=== PATIENT | female | born 1990 | race Caucasian/White ===

== ENCOUNTER 2017-05-31 22:20 | Emergency (ER) | payer OTHER ==
[2017-05-31 22:45] VITALS: BP 118/68; PULSE 89; TEMP 99; BMI 20.9
--- NOTE | 2017-05-31 23:23 | PDOC ---
History of Present Illness - General Chief Complaint: Cold Symptoms Stated Complaint: COLD SYMPTOMS Time Seen by Provider: 05/31/17 22:45 History Source: Patient Exam Limitations: No Limitations - History of Present Illness Initial Comments: 05/31/17 23:20 Best Contact: Pmhx: N/A Pshx: N/A Allergies: NKDA 26-year-old female presents to the emergency department complaining of general malaise, fever/Tmax 101.9, rhinorrhea 3-1/2 days with 4/10 dull nonradiating intermittent frontal headache when she has a fever. Patient's been taken Tylenol which alleviates the headache and fever. Patient denies dizziness, lightheadedness, facial pains, rhinorrhea, nasal congestion, earaches, sore throat, neck stiffness/pain, back pains, earaches, cough, chest pain, shortness of breath, abdominal pains, urinary symptoms. Patient states she is eating and drinking without any difficulties. Timing/Duration: reports: other (x3d) Past History - Past Medical History Allergies/Adverse Reactions: Allergies Allergy/AdvReac Type Severity Reaction Status Date / Time No Known Allergies Allergy Verified 01/15/14 08:31 Home Medications: Ambulatory Orders NK [No Known Home Medication] 05/31/17 Asthma: No Cancer: No Cardiac Disorders: No COPD: No Diabetes: No HTN: No Seizures: No Thyroid Disease: No - Suicide/Smoking/Psychosocial Hx Smoking History: Never smoked Have you smoked in the past 12 months: No Information on smoking cessation initiated: No Hx Alcohol Use: No Drug/Substance Use Hx: No Hx Substance Use Treatment: No Review of Systems - Review of Systems Able to Perform ROS?: Yes Comments:: 05/31/17 23:22 CONSTITUTIONAL: +fever/chills, generalized weakness, malaise Absent: diaphoresis, loss of appetite HEENT: Absent: rhinorrhea, nasal congestion, throat pain, throat swelling, difficulty swallowing, mouth swelling, ear pain, eye pain, visual Changes CARDIOVASCULAR: Absent: chest pain, loss of consciousness, palpitations, irregular heart rate, peripheral edema RESPIRATORY: Absent: cough, shortness of breath, dyspnea with exertion, orthopnea, wheezing, stridor, hemoptysis GASTROINTESTINAL: Absent: abdominal pain, abdominal distension, nausea, vomiting, diarrhea, constipation, melena, hematochezia GENITOURINARY: Absent: dysuria, frequency, urgency, hesitancy, hematuria, flank pain, genital pain MUSCULOSKELETAL: Absent: myalgia, arthralgia, joint swelling SKIN: Absent: rash, itching, pallor HEMATOLOGIC/IMMUNOLOGIC: Absent: easy bleeding, easy bruising, lymphadenopathy, frequent infections ENDOCRINE: Absent: unexplained weight gain, unexplained weight loss, heat intolerance, cold intolerance NEUROLOGIC: Absent: headache, focal weakness or paresthesias, dizziness, unsteady gait, seizure, mental status changes, bladder or bowel incontinence Is the patient limited Thai proficient: No *Physical Exam - Vital Signs Last Vital Signs Temp Pulse Resp BP Pulse Ox 99 F 89 20 118/68 100 05/31/17 22:43 05/31/17 22:43 05/31/17 22:43 05/31/17 22:43 05/31/17 22:43 - Physical Exam Comments: 05/31/17 23:22 GENERAL: Well developed, well nourished. Awake and alert. No acute distress. HEENT: Normocephalic, atraumatic. PERRLA, EOMI. No conjunctival pallor. Sclera are non- icteric. Moist mucous membranes. Oropharynx is clear. NECK: Supple. Full ROM. No JVD. Carotid pulses 2+ and symmetric, without bruits. No thyromegaly. No lymphadenopathy. CARDIOVASCULAR: Regular rate and rhythm. No murmurs, rubs, or gallops. Distal pulses are 2+ and symmetric. PULMONARY: No evidence of respiratory distress. Lungs clear to auscultation bilaterally. No wheezing, rales or rhonchi. ABDOMINAL: Soft. Non-tender. Non-distended. No rebound or guarding. No organomegaly. Normoactive bowel sounds. MUSCULOSKELETAL Normal range of motion at all joints. No bony deformities or tenderness. No CVA tenderness. EXTREMITIES: No cyanosis. No clubbing. No edema. No calf tenderness. SKIN: Warm and dry. Normal capillary refill. No rashes. No jaundice. NEUROLOGICAL: Alert, awake, appropriate. Cranial nerves 2-12 intact. No deficits to light touch and temperature in face, upper extremities and lower extremities. No motor deficits in the in face, upper extremities and lower extremities. Normoreflexic in the upper and lower extremities. Normal speech. Toes are down- going bilaterally. Gait is normal without ataxia. *DC/Admit/Observation/Transfer Diagnosis at time of Disposition: Influenza - Discharge Dispostion Condition at time of disposition: Stable Admit: No - Referrals Referrals: Norberto Posadas MD [Staff Physician] - - Patient Instructions Printed Discharge Instructions: Influenza Additional Instructions: Increase fluids Tylenol alternating with Motrin as needed for fever/pain Follow up with your physician within 48 hours You symptoms has surpassed 48 hours [id number] supportive care Return back to the emergency department for severe/persistent or worsening symptoms Print Language: BELIZEAN - Post Discharge Activity
== END 2017-05-31 23:24 | disposition home or self-care (01) ==
LOC: JERFT 22:20
DX: J11.1 Influenza due to unidentified influenza virus with other respiratory manifestations (principal)
CPT/HCPCS: 99281-25